=== PATIENT | female | born 1975 | race Caucasian/White ===

== ENCOUNTER 2017-04-18 21:24 | Emergency (ER) | payer OTHER ==
--- NOTE | 2017-04-18 21:42 | EDPHY ---
HPI/HX/ROS/PE/MDM Narrative: CHIEF COMPLAINT: Diffuse urticaria HPI: This patient is a 42 year old female with no known allergies who presents to the Emergency Department with acute onset urticaria beginning approximately one hour prior to arrival. She denies throat swelling or dyspnea. She has not taken any medications to attempt to relieve her rash. She did take a shower without improvement to her complaints. She had one prior allergic reaction in June 2015 which was effectively treated in the ED with typical allergy protocol. Medical history includes hypothyroidism. REVIEW OF SYSTEMS: Aside from elements discussed in the HPI, a comprehensive 10-point review of systems was reviewed and is negative. PMH: Hypothyroid. SOCIAL HISTORY: Lives in [place]. . PHYSICAL EXAM: General:Patient is alert, in no acute distress. ENT:Eyes are normal to inspection. ENT inspection normal. Neck: Normal inspection. Full range of motion. Respiratory:No respiratory distress. Breath sounds normal bilaterally. Cardiovascular: Regular rate and rhythm. Strong peripheral pulses. Normal cap refill. Abdomen:The abdomen is nontender to palpation. There are no peritoneal signs. There are normal bowel sounds. Back: Normal to inspection. No tenderness to palpation. Skin: Diffuse urticaria over the back and arms. Normal color. Warm and dry. Extremities: Normal appearance. Full range of motion. Neuro: Oriented x3. Normal motor function. Normal sensory function. ED Course: 42-year-old female with no known allergies and history of one allergic reaction presents with diffuse urticaria worsening over the past hour. On exam, her urticaria is most significant to her back and torso. She has no facial or pharyngeal edema. She is not hypoxemic. She denies dyspnea. IV established. 50mg IV Benadryl, 125mg IV methylprednisolone, 50mg IV ranitidine, and 1L IV NS administered. 2231: On reevaluation, the patient is feeling much better. Urticaria is almost completely resolved. I discussed at-home care instructions using Benadryl PRN and recommendation to follow-up with an street light mechanic for further evaluation. She is agreeable to this. She will be discharged home in good condition with customary return precautions. - Data Points Medications Given: Discontinued Medications Diphenhydramine HCl (Benadryl Injection) 50 mg IVP EDNOW ONE Stop: 04/18/17 21:44 Last Admin: 06/16/17 22:02 Dose: 50 mg Sodium Chloride (Ns) 1,000 mls @ 0 mls/hr IV ONCE ONE; Wide Open PRN Reason: Protocol Stop: 04/18/17 21:44 Last Admin: 04/18/17 22:02 Dose: 1,000 mls Methylprednisolone Sodium Succinate (Solu-Medrol) 125 mg IVP EDNOW ONE Stop: 04/18/17 21:44 Last Admin: 04/18/17 22:02 Dose: 125 mg Ranitidine HCl (Zantac) 50 mg IVP EDNOW ONE Stop: 04/18/17 21:44 Last Admin: 04/18/17 22:03 Dose: 50 mg General Time Seen by Provider: 04/18/17 21:38 Initial Vital Signs: Initial Vital Signs Temperature (C) 36.4 C 04/18/17 21:27 Heart Rate 74 04/18/17 21:27 Respiratory Rate 16 04/18/17 21:27 Blood Pressure 147/93 H 04/18/17 21:27 O2 Sat (%) 97 04/18/17 21:27 O2 Delivery Mode Room Air Allergies/Adverse Reactions: hazelnut Allergy (Verified 04/18/17 21:31) Home Medications: Medication Instructions Recorded Clindamycin 06/30/15 Escitalopram Oxalate 06/30/15 IBUPROFEN 06/30/15 Levothyroxine 06/30/15 Penicillin V Potassium 500 mg PO TID #10 tablet 06/30/15 predniSONE 20 mg PO DAILY #2 tab 06/30/15 Departure - Departure Disposition: Home, Routine, Self-Care Clinical Impression: Urticaria Allergic reaction Qualifiers: Encounter type: initial encounter Qualified Code(s): T78.40XA - Allergy, unspecified, initial encounter Condition: Good Instructions: Urticaria (ED), General Allergic Reaction (ED) Additional Instructions: Follow-up with an street light mechanic to evaluate the cause of your allergic reaction. Take Benadryl as directed, as needed for rash. Return to the Emergency Department if you experience a recurrence of your rash, difficulty breathing, throat or facial swelling, or for other serious concerns. Referrals: Beronica Emmanuel PA [Primary Care Provider] - As per Instructions Gabby Yates MD [[facility] [place] Primary Care Provider] - As per Instructions Report Scribed for: Tamir Cordero Report Scribed by: Sue Davis Date of Report: 04/18/17 Time of Report: 21:40 Physician Review and Approval Statement: Portions of this note were transcribed by an ED scribe. I personally performed the history, physical exam, and medical decision making; and confirm the accuracy of the information in the transcribed note.
[2017-04-18] MEDS ORDERED: methylPREDNISolone SOD SUCC 125 MG/2 ML VIAL IVP ONE (21:43)
[2017-04-18] MEDS ORDERED: NS 1,000 ML IV ONE (21:43)
[2017-04-18] MEDS ORDERED: RANITIDINE 50 MG/2 ML VIAL IVP ONE (21:43)
[2017-04-18] MEDS ORDERED: NS 50 ML BAG IV ONE (21:56)
[2017-04-18 23:00] VITALS: BP 123/73; PULSE 67; RESP 18; TEMP 98.1; O2SAT 95
== END 2017-04-18 23:00 | disposition home or self-care (01) ==
DX: L50.0 Allergic urticaria (principal)
CPT/HCPCS: 96374; J1200; J2780

== ENCOUNTER → 2017-11-18 | Outpatient (CLI) | payer OTHER | LOC: FIMAGING 15:42 | PROVIDERS: ATTEND Internal Medicine Endocrinology, Diabetes & Metabolism | DX: Z85.850 Personal history of malignant neoplasm of thyroid (principal); Z90.09 Acquired absence of other part of head and neck ==

== ENCOUNTER → 2019-04-26 | Outpatient (CLI) | payer OTHER | LOC: FIMAGING 13:40 ==